=== PATIENT | male | born 1995 | race Hispanic/Latino ===

== ENCOUNTER 2018-07-12 23:29 | Emergency (ER) | payer SELFPAY ==
[2018-07-12 23:34] VITALS: BP 123/66; PULSE 109; RESP 16; TEMP 98.2; O2SAT 99
[2018-07-12] MEDS ORDERED: Tdap Vaccine 0.5 ml Vial (10-64 yrs) IM ONE ×2 (23:42→23:50)
[2018-07-12] MEDS ORDERED: Bacitracin 500 Units/gm Oint Foilpak UD TOP STA (23:43)
[2018-07-13 00:18] LABS: BARBITURATES, UR NEGATIVE (NEGATIVE); BENZODIAZEPINES, UR NEGATIVE (NEGATIVE); OPIATES, UR NEGATIVE (NEGATIVE); PHENCYCLIDINE, UR NEGATIVE (NEGATIVE)
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
== END 2018-07-13 01:40 | disposition home or self-care (01) ==
LOC: H.ER 23:29
DX: S00.83XA Contusion of other part of head, initial encounter (principal); F12.90 Cannabis use, unspecified, uncomplicated; F10.10 Alcohol abuse, uncomplicated; Y04.0XXA Assault by unarmed brawl or fight, initial encounter; Z23 Encounter for immunization
CPT/HCPCS: 70450; 70486; 72125; 82948; 90471; 90715; 99283; G0480

== ENCOUNTER 2018-07-29 02:39 | Emergency (ER) | payer MEDICAID ==
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
[2018-07-29 06:42] VITALS: BP 112/87; PULSE 86; RESP 19; TEMP 97.7
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
[2018-08-01 14:44] VITALS: O2SAT 98
== END 2018-07-29 06:50 | disposition home or self-care (01) ==
LOC: H.ER 02:39
DX: F10.10 Alcohol abuse, uncomplicated (principal); S09.90XA Unspecified injury of head, initial encounter; S02.2XXA Fracture of nasal bones, initial encounter for closed fracture; Y04.0XXA Assault by unarmed brawl or fight, initial encounter; Y92.89 Other specified places as the place of occurrence of the external cause